=== PATIENT | female | born 1980 | race African-American/Black ===

== ENCOUNTER 2019-07-27 17:08 | Observation (INO) ==
[2019-07-27] MEDS ORDERED: ASPIRIN PO ONE (17:10)
--- NOTE | 2019-07-27 17:22 | EKG Report ---
Test Performed on : 07/27/2019 5:14:35 PM Test Reason : cp Blood Pressure : / mmHG Vent. Rate : 075 BPM Atrial Rate : 075 BPM P-R Int : 168 ms QRS Dur : 076 ms QT Int : 392 ms P-R-T Axes : 048 009 005 degrees QTc Int : 437 ms Normal sinus rhythm. Nonspecific T wave abnormality Abnormal ECG When compared with ECG of 27-DEC-2018 11:43, Nonspecific T wave abnormality now evident in Lateral leads Unconfirmed Result
[2019-07-27] MEDS ORDERED: G.I. COCKTAIL PO ONE (17:25)
[2019-07-27] MEDS ORDERED: ATIVAN IV ONE (17:32)
[2019-07-27 17:41] LABS: BASO# 0.02 X1000 (0.0-0.2); BASO% 0.3 % (0.0-0.8); EOS# 0.07 X1000 (0.0-0.7); EOS% 1.1 % (0.0-10.0); HEMATOCRIT 38.8 % (37.0-47.0); HEMOGLOBIN 13.3 g/dL (12.0-16.0); IMM GRAN# 0.02 X1000 (0.0-0.04); IMM GRAN% 0.3 % (0.0-0.5); LYMPH# 1.65 X1000 (1.2-3.4); LYMPH% 25.8 % (20.5-51.1); MCH 29.8 PG (27-31); MCHC 34.3 g/dL (33-37); MCV 86.8 FL (81-99); MONO# 0.61 X1000 (0.11-0.59); MONO% 9.5 % (1.7-9.3); MPV 10.1 FL (7.4-10.4); NEUT# 4.02 X1000 (1.4-6.5); PLT 324 X1000 (130-400); RBC 4.47 XMIL (4.2-5.4); RDW 12.1 % (11.5-14.5); WBC 6.39 X1000 (4.8-10.8)
[2019-07-27 17:53] LABS: INR 0.9; PROTIME 12.6 Seconds (11.0-16.0)
[2019-07-27 17:54] LABS: PTT 29.9 Seconds (22.3-41.8)
[2019-07-27 17:55] LABS: AGAP 11; ALBUMIN 4.2 g/dL (3.5-5.0); ALKALINE PHOSPHATASE 53 U/L (32-104); BUN 9 mg/dL (8-22); CALCIUM 9.2 mg/dL (8.8-10.2); CHLORIDE 102 mmol/L (98-107); CK PROFILE 167 U/L (24-173); COSMO 277; CREATININE 0.5 mg/dL (0.5-0.9); ESTIMATED GFR > 60; GLUCOSE 111 mg/dL (70-104); GOT 18 U/L (10-30); GPT 13 U/L (10-36); POTASSIUM 3.7 mmol/L (3.5-5.1); SODIUM 139 mmol/L (136-145); TCO2 26 mmol/L (25-35); TOTAL PROTEIN 6.9 g/dL (6.3-8.3)
[2019-07-27 18:02] LABS: URINE SOURCE CLEAN CATCH
[2019-07-27 18:08] LABS: BILIRUBIN URINE NEGATIVE (NEGATIVE); BLOOD URINE NEGATIVE (NEGATIVE); COLOR YELLOW; GLUCOSE URINE NEGATIVE (NEGATIVE); KETONE URINE NEGATIVE (NEGATIVE); LEUKOCYTES URINE NEGATIVE (NEGATIVE); NITRITE URINE NEGATIVE (NEGATIVE); PH URINE 6.5; PROTEIN URINE NEGATIVE (NEGATIVE); TURBIDITY URINE CLEAR (CLEAR); UROBILINOGEN URINE NORMAL (NORMAL)
[2019-07-27 18:09] LABS: UR EPITHELIAL CELLS <10 /HPF (<10); URINE BACTERIA NEGATIVE /HPF; URINE RBC <10 /HPF (<10); URINE WBC <10 /HPF (<10)
--- NOTE | 2019-07-27 18:43 | Diag Imaging Result Doc PS360 ---
EXAM: CHEST-2 VIEWS INDICATION: cp TECHNIQUE: 2 views COMPARISON: 12/27/2018 FINDINGS: The lungs are grossly clear. There is no discrete pleural fluid collection or pneumothorax. The cardiomediastinal silhouette and central vasculature are grossly unremarkable. IMPRESSION: No evidence of acute pathology by plain radiograph. Electronically signed by Zachary Smith 07/27/2019 6:41 PM
--- NOTE | 2019-07-27 19:11 | PROVIDER DOCUMENTATION ---
This chart was entered by Kaylyn Bloom Scribe, acting as scribe for Austen Sawant MD. HPI-Chest Pain - General Chief Complaint: Chest Pain Stated Complaint: CHEST PAIN Time Seen by Provider: 07/27/19 17:25 Source: patient Allergies/Adverse Reactions: Patient Allergies Allergy/AdvReac Type Severity Reaction Status Date / Time benzonatate Allergy Unknown Unknown Verified 05/29/19 18:14 [From Kady Cole] amoxicillin Allergy Unknown Verified 05/29/19 18:14 Penicillins AdvReac Intermediate RECTAL Verified 05/29/19 18:14 BLEEDING Home Medications: Home Medication List Medication Instructions Recorded Confirmed Last Taken Type Amlodipine [Norvasc] 10 mg PO DAILY #30 tab 05/29/19 07/27/19 Unknown Rx Hydrocodone/Acetaminophen [[place] 1 tab PO TID PRN 07/27/19 07/27/19 Unknown History 10-325 Tablet] - History of Present Illness-CP Nature of Presenting Problem: Pt is a 38yobf presenting in the ED with c/o left upper chest pain that started this morning and which pt ignored while at work. Pt states that chest pain is an 8 out of 10. Pt reports that she has a hx of HTN, anxiety, and acid reflux. Pt denies SOB, nausea, diaphoresis and hx of chest pain or diabetes. Pt is alert and nontoxic in appearance. Location: reports: substernal (upper left) Chest Pain Radiation: reports: no radiation Quality of Pain: reports: dull Severity in ED: moderate Onset/Duration: abrupt, this morning Timing: still present (pt reports an 8 out of 10 pain) Context/Activities at Onset: reports: light activity Modifying Factors: improves with: nothing Associated Symptoms: denies: diaphoresis, fever/chills, nausea, shortness of breath, vomiting Aspirin Treatment Today: 325 mg x 1, provided by ED Similar Symptoms Previously?: No Recently Seen Here or By Another Healthcare Provider: No Review of Systems - Adult - REVIEW OF SYSTEMS - ADULT Constitutional: denies: chills, fever Eyes: reports: no symptoms reported Ears, Nose, Mouth & Throat: reports: no symptoms reported Cardiovascular: reports: see HPI, chest pain. denies: syncope Respiratory: denies: cough, shortness of breath Gastrointestinal: reports: see HPI, nausea. denies: abdominal pain, diarrhea, vomiting Genitourinary: reports: no symptoms reported Musculoskeletal: reports: no symptoms reported Integumentary: reports: no symptoms reported Neurological: reports: no symptoms reported Psychiatric: reports: no symptoms reported Endocrine: reports: no symptoms reported Hematologic/Lymphatic: reports: no symptoms reported Allergic/Immunologic: reports: no symptoms reported All Other Systems: Reviewed and Negative Past History - Adult - PAST MEDICAL HISTORY-ADULT Review of Records: reports: Old Records Reviewed, Nursing Assessment Review, Medications Reviewed, Social history reviewed & non-contributory. Major Childhood Illnesses: reports: denies history Cardiovascular: reports: HTN Respiratory: reports: denies history Gastrointestinal: reports: other (constipation and narcotic use) Obstetrical/Gynecological: reports: denies history Genitourinary: reports: other (gonorrhea) Musculoskeletal: reports: chronic pain (chronic back pain) Neurological: reports: degenerative disease, headaches/migraines Psychiatric: reports: anxiety, depression Endocrine/Immune: reports: denies history Other Conditions: reports: denies history - PRIOR SURGERIES/PROCEDURES Surgical/Procedure History: reports: cholecystectomy, BTL, , orthopedic (extremity) (left ankle) - PRIOR HOSPITALIZATIONS Prior Hospitalizations: reports: none - IMMUNIZATION STATUS Childhood Immunizations: See Nurse Assessment Flu Vaccine: See Nurse Assessment - FAMILY HISTORY Family History: reviewed, not pertinent - SOCIAL HISTORY Smoking: quit less than 1 year Substance Use: denies Living Situation: family Physical Exam-General - PHYSICAL EXAM-ADULT Initial Vital Signs Reviewed: Yes - CONSTITUTIONAL General Appearance: appears well, alert, no apparent distress - EYES Eyes: PERRL/EOMI, pink conjunctivae - HEAD, EARS, NOSE, MOUTH & THROAT HENMT: normocephalic/atraumatic, moist mucous membranes, normal ENT inspection - NECK Neck: non-tender, full range of motion, supple - RESPIRATORY Respiratory: chest non-tender, lungs clear, normal breath sounds, no respiratory distress - CARDIOVASCULAR Cardiovascular: normal peripheral pulses, regular rate, rhythm - GASTROINTESTINAL (ABDOMEN) Abdominal Exam: normal bowel sounds, non tender, soft - MUSCULOSKELETAL Back Exam: normal inspection, no CVA tenderness, no vertebral tenderness Extremity: normal range of motion, non-tender, normal gait, no pedal edema, no calf tenderness - SKIN Integumentary: normal color, normal turgor, warm/dry - NEUROLOGIC Neurologic: grossly normal - PSYCHIATRIC Psych/Mental Status: normal mood/affect, normal thought content, normal thought process, oriented x 3 - HEART Score HEART Score: History: Moderately Suspicious HEART Score: ECG: Non-Specific Repolarization Disturbance/LBBB/PM HEART Score: Age: < or = 45 Years HEART Score: Risk Factors for Atherosclerotic Disease: 1 or 2 Risk Factors HEART Score: Troponin: < or = Normal Limit Total HEART Score:: 3 Progress - PLAN OF CARE/RESULTS Progress/Plan/Lab Results: Vital Signs - 8 hr 07/27/19 17:14 07/27/19 18:48 Temperature 98.3 F 98.1 F Pulse Rate 73 54 L Respiratory Rate 18 16 Blood Pressure 123/84 117/68 O2 Sat by Pulse Oximetry 97 97 Laboratory Results - last 24 hr 07/27/19 07/27/19 07/27/19 17:20 17:20 17:20 WBC RBC Hgb Hct MCV MCH MCHC RDW Std Deviation Plt Count MPV Immature Gran % (Auto) Neut % (Auto) Lymph % (Auto) Graves % (Auto) Eos % (Auto) Baso % (Auto) Immature Gran # (Auto) Neut # (Auto) Lymph # (Auto) Graves # (Auto) Eos # (Auto) Baso # (Auto) PT INR PTT (Actin FS) D-Dimer, Quantitative 0.17 Sodium 139 Potassium 3.7 Chloride 102 Carbon Dioxide 26 Anion Gap 11 BUN 9 Creatinine 0.5 Estimated GFR/1.73 m2 > 60 BUN/Creatinine Ratio 18 Glucose 111 H Calculated Osmolality 277 Calcium 9.2 Total Bilirubin 0.50 AST 18 ALT 13 Alkaline Phosphatase 53 Creatine Kinase 167 Troponin T High Sens Znq-P-Xnnxtfginjk Pept 13 Total Protein 6.9 Albumin 4.2 Globulin 3.0 Albumin/Globulin Ratio 2.0 Urine Source Urine Color Urine Turbidity Urine pH Ur Specific [place] Urine Protein Ur Glucose (Stick) Ur Ketones (Stick) Urine Blood Urine Nitrite Urine Bilirubin Urobilinogen Dipstick Urine Leukocytes Urine WBC (Auto) Urine RBC (Auto) U Epithel Cells (Auto) Urine Bacteria (Auto) 07/27/19 07/27/19 07/27/19 17:20 17:20 17:20 WBC 6.39 RBC 4.47 Hgb 13.3 Hct 38.8 MCV 86.8 MCH 29.8 MCHC 34.3 RDW Std Deviation 12.1 Plt Count 324 MPV 10.1 Immature Gran % (Auto) 0.3 Neut % (Auto) 63.0 Lymph % (Auto) 25.8 Graves % (Auto) 9.5 H Eos % (Auto) 1.1 Baso % (Auto) 0.3 Immature Gran # (Auto) 0.02 Neut # (Auto) 4.02 Lymph # (Auto) 1.65 Graves # (Auto) 0.61 H Eos # (Auto) 0.07 Baso # (Auto) 0.02 PT 12.6 INR 0.90 PTT (Actin FS) 29.9 D-Dimer, Quantitative Sodium Potassium Chloride Carbon Dioxide Anion Gap BUN Creatinine Estimated GFR/1.73 m2 BUN/Creatinine Ratio Glucose Calculated Osmolality Calcium Total Bilirubin AST ALT Alkaline Phosphatase Creatine Kinase Troponin T High Sens < 6 [id number] Pept Total Protein Albumin Globulin Albumin/Globulin Ratio Urine Source Urine Color Urine Turbidity Urine pH Ur Specific [place] Urine Protein Ur Glucose (Stick) Ur Ketones (Stick) Urine Blood Urine Nitrite Urine Bilirubin Urobilinogen Dipstick Urine Leukocytes Urine WBC (Auto) Urine RBC (Auto) U Epithel Cells (Auto) Urine Bacteria (Auto) 07/27/19 17:30 WBC RBC Hgb Hct MCV MCH MCHC RDW Std Deviation Plt Count MPV Immature Gran % (Auto) Neut % (Auto) Lymph % (Auto) Graves % (Auto) Eos % (Auto) Baso % (Auto) Immature Gran # (Auto) Neut # (Auto) Lymph # (Auto) Graves # (Auto) Eos # (Auto) Baso # (Auto) PT INR PTT (Actin FS) D-Dimer, Quantitative Sodium Potassium Chloride Carbon Dioxide Anion Gap BUN Creatinine Estimated GFR/1.73 m2 BUN/Creatinine Ratio Glucose Calculated Osmolality Calcium Total Bilirubin AST ALT Alkaline Phosphatase Creatine Kinase Troponin T High Sens [id number]-Tieygbezeqx Pept Total Protein Albumin Globulin Albumin/Globulin Ratio Urine Source CLEAN CATCH Urine Color YELLOW Urine Turbidity CLEAR Urine pH 6.5 Ur Specific [place] 1.020 Urine Protein NEGATIVE Ur Glucose (Stick) NEGATIVE Ur Ketones (Stick) NEGATIVE Urine Blood NEGATIVE Urine Nitrite NEGATIVE Urine Bilirubin NEGATIVE Urobilinogen Dipstick NORMAL Urine Leukocytes NEGATIVE Urine WBC (Auto) <10 Urine RBC (Auto) <10 U Epithel Cells (Auto) <10 Urine Bacteria (Auto) NEGATIVE Orders Category Date Time Status Cardiac Monitoring DIRECTED Care 07/27/19 17:13 Active Saline Loc NOW Care 04/08/20 17:13 Active CHEST-2 VIEWS [RAD] Stat Exams 07/27/19 17:13 Completed CBC WITH ELECTRONIC DIFF [HEME] Stat Lab 07/27/19 17:20 Completed CK PROFILE [SP CHEM] Stat Lab 07/27/19 17:20 Completed COMPREHENSIVE METABOLIC PANEL [CHEM] Stat Lab 07/27/19 17:20 Completed D-DIMER [COAG] Stat Lab 07/27/19 17:20 Completed PRO B-NATRIURETIC PEPTIDE Stat Lab 07/27/19 17:20 Completed PROTIME WITH INR [COAG] Stat Lab 07/27/19 17:20 Completed PTT [COAG] Stat Lab 07/27/19 17:20 Completed TROPONIN T HIGH SENSITIVITY Stat Lab 07/27/19 17:20 Completed UA [URINALYSIS W/POSS RFLX CULT] [URINALYSIS] Stat Lab 07/27/19 17:30 Completed Aspirin Med 07/27/19 17:10 Discontinued 325 mg PO NOW ONE Lido/Kelsey Alk/Al&mg Hydrox [G.i. Cocktail] Med 07/27/19 17:25 Discontinued 30 ml PO NOW ONE Lorazepam [Ativan] Med 07/27/19 17:32 Discontinued 1 mg IV NOW ONE CP/SOB/Palp >45 yrs of Age Stat Oth 07/27/19 17:10 Ordered EKG [EKG] Stat Ther 07/27/19 17:13 Draft Result Diagrams: 07/27/19 17:20 07/27/19 17:20 - EKG 1 Time of EKG reading by physician:: 17:24 EKG Read and Signed by:: Austen Sawant EKG Interpretation (*Must complete 3 of following elements*): Abnormal Rate: 75 Rhythm: NSR [place]: normal QRS: normal IA Interval: normal ST Wave: non-specific ST changes Comments: Nonspecific T wave abnormality - XRAY 1 XRAY Study: Chest Impression: Normal, See EMR Report ([facility] - [address], [address], [place] [address] [facility] - [address] [place] [address] Department of Imaging Patient: CELIA BOWERS Date: 07/27/19MR#: [id number] : 1980ADM Status: REG ERAcct#: [id number] Age/Sex: 38/FRoom/Bed: Loc: P.ED Ordering Physician: Austen Sawant MD Family Physician: Aron Yusuf MD Reason for Procedure: cp Signed EXAM: CHEST-2 VIEWS INDICATION: cp TECHNIQUE: 2 views COMPARISON: 12/27/2018 FINDINGS: The lungs are grossly clear. There is no discrete pleural fluid collection or pneumothorax. The cardiomediastinal silhouette and central vasculature are grossly unremarkable. IMPRESSION: No evidence of acute pathology by plain radiograph. Electronically signed by Zachary Smith 07/27/2019 6:41 PM 07/27/191840 Interpreting Physician: Zachary Smith MD Dictated Date/Time: 07/27/191839 cc: Austen Sawant MD; Aron Yusuf MD) - CONSULTS/PCP/HOSPITALIST Notification #1 *Consult/PCP/Hospitalist*: Dr. Walker Time Discussed: 19:01 Consult Disposition: Admit Departure - Departure Date of Disposition Decision: 07/27/19 Time of Disposition Decision: 19:10 DIAGNOSIS: Sinus bradycardia seen on pvc monitor, Panic disorder Chest pain Qualifiers: Chest pain type: unspecified Qualified Code(s): R07.9 - Chest pain, unspecified Disposition: ADMITTED INPATIENT 09 Certified Medical Emergency: Emergent Condition: Stable Referrals and Follow-Ups: Aron Yusuf MD [Primary Care Provider] - - Critical Care Note This patient required my direct & personal management of CC.: No Attestation - Physician/ MAYCO Attestation Patient care was provided by Advanced Practice Provider:: No The physician spent face to face time with patient:: Yes Advanced Practice Provider documentation review:: Supervising physician onsite and consulted in the evaluation and care of this patient. The physician did have a face to face encounter with the patient. This chart was documented by the indicated scribe, (Kaylyn Bloom, [place]) and accurately reflects the services I performed and decisions made by me, Austen Sawant MD, as attested by the provider's signature.
[2019-07-27] MEDS ORDERED: TYLENOL PO PRN (20:39)
[2019-07-27] MEDS ORDERED: ZOFRAN IV PRN (20:39)
[2019-07-27] MEDS ORDERED: MORPHINE IV PRN (20:39)
[2019-07-28] MEDS ORDERED: NORCO-10 PO PRN (12:32)
[2019-07-28] MEDS ORDERED: NORVASC PO SCH (12:45)
[2019-07-28 14:25] VITALS: BP 121/81
[2019-07-28] MEDS ORDERED: MYLICON PO ONE (15:03)
[2019-07-28] MEDS ORDERED: PEPCID PO ONE (15:03)
--- NOTE | 2019-07-28 18:09 | HISTORY AND PHYSICAL ---
CHIEF COMPLAINT: Chest pain. HISTORY OF PRESENT ILLNESS: This is a 38-year-old female complaining of upper chest pain, somewhat atypical, sharp in nature, started the morning, got worse at work, relieved somewhat by rest. It radiated into her left neck and into her back. She does have a history of hypertension, anxiety, reflux. She denies shortness of breath. No nausea or diaphoresis. She has no cardiac history or family cardiac history. She is not a smoker. I do not think her heart score was very high. EKG normal. Cardiacs were normal, but she was admitted for chest pain and chest pain rule out. I would say her heart score is somewhere between 2 to 3. In any case, the patient does describe the pain as sharp, not pressure-like. She also reports she has been heaving heavy boxes at [employer] where she works, 35 pounds boxes where she lifts repeatedly, so she is concerned maybe was related to that. PAST MEDICAL HISTORY: Again hypertension alone for which she takes Norvasc. No dyslipidemia. PAST SURGICAL HISTORY: I do not think she had any major surgeries. SOCIAL HISTORY: No tobacco or ethanol. She is does not drink caffeine. All that looks intact. ALLERGIES: Tessalon, amoxicillin, penicillin. FAMILY HISTORY: Is positive for hypertension but no CAD. REVIEW OF SYSTEMS: Otherwise negative times a 10 point review of system. PHYSICAL EXAM: Blood pressure is 121/81, heart rate 61, respiratory rate 21, temperature 98.3 degrees. GENERAL: A well-developed female in no acute distress. HEENT: Head exam was normocephalic, atraumatic. Eye exam pupils equal, round, reactive to light. Extraocular movements were intact. Ear, nose and throat exam she had moist mucous membranes. NECK: Supple. CARDIOVASCULAR: Regular rate and rhythm. No murmurs, gallops, or rubs. PULMONARY: Bilateral breath sounds. Clear to auscultation. GI: Soft, nontender, nondistended. Bowel sounds are positive. LABORATORY DATA: White count 6, hemoglobin 13 and hematocrit 38. Troponin negative. Urine was negative. EKG showed normal sinus rhythm. There were just atypical changes. Chest x-ray was clear. ASSESSMENT: A 38-year-old female. She was admitted for treatment for chest pain observation. She ruled out with serial enzymes. Echo is ordered and pending. As she is low risk, I think she is safe to be discharged and decrease exposure to coronavirus. We will have her come back as an outpatient for an outpatient stress test tomorrow. Plan to do tomorrow but again fairly low risk for any cardiac disease, although she was advised to take it easy till we get all the testing back. cc: Alvaro Ferrera MD
--- NOTE | 2019-07-29 22:31 | ECHO REPORT ---
ORDER DATE: 07/28/2019 MEASUREMENTS: Septal thickness 0.7, left ventricular internal diameter in diastole 5.2, posterior wall thickness 0.7, left ventricular internal diameter in systole 3.3, aortic root 3.0, left atrium 4.2. SUMMARY: 1. Technically difficult study due to limited acoustic window quality. 2. Aortic valve is trileaflet and opens normally on 2-dimensional images. The peak gradient across the aortic valve is less than 10 mmHg. Mitral and tricuspid valves are without evidence of structural abnormality while pulmonic valve was not well demonstrated. There is very mild mitral regurgitation and very mild tricuspid regurgitation. Estimated systolic PA pressure by Doppler is 45 mmHg suggesting mild pulmonary hypertension. Aortic root is normal in size. 3. Normal left ventricular dimension is demonstrated. The estimated left ventricular ejection fraction appears to be at least 60%. No regional wall motion abnormality can be appreciated. Left atrium is mildly enlarged. The right atrium and right ventricle are normal in size with normal right ventricular systolic function. 4. No pericardial effusion. 5. Appearance of inferior vena cava suggests normal central venous pressure. CONCLUSIONS: 1. Technically difficult study. 2. Very mild mitral regurgitation. 3. Very mild tricuspid regurgitation with mild pulmonary hypertension by Doppler. 4. Estimated left ventricular ejection fraction approximately 60% without regional wall motion abnormality appreciated. cc: MD Alvaro Berry MD
== END 2019-07-28 16:10 | disposition home or self-care (01) ==
LOC: P.MEDSURG 17:08 → P.ED 17:08
PROVIDERS: ATTEND Internal Medicine